=== PATIENT | male | born 1940 | race Caucasian/White ===

== ENCOUNTER 2019-08-03 11:16 | Emergency (ER) | payer OTHER ==
[~2019-08-03] VITALS: Ht 180.3 cm; Wt 93.9 kg
[~2019-08-03 11:16] MED LIST: AMLO10 PO; ATEN50 PO; ATORVASTATIN CA80 MG PO; Aspir 8181 MG PO; CARB25 PO; CLOP75 PO; FINA5 PO; GABA100 PO; GLIP5 PO; Glucophage1000 MG PO; INSULANPEN SC; Isosorbide Mono60 MG PO; LIDO700A20 TOP; Lasix20 MG PO; MELA3 PO; METO100ER PO; METO50ER PO; PANT40 PO; POTA10T PO; RANO500T PO; ROPI2 PO; SINEMET 25-1001 EACH PO; TAMS.4ER PO; VITAMIN B-121000 MC2 PO; VITAMIN D31000 UNIT PO; Vitamin B Comple1 EA PO; XARELTO20 MG PO
[2019-08-03 12:09] LABS: BASOPHILS ABSOLUTE AUTO 0.04 K/mm3 (0.00-0.23); BASOPHILS PERCENT AUTO 1 % (0-2); EOSINOPHILS ABSOLUTE AUTO 0.11 K/mm3 (0.00-0.68); EOSINOPHILS PERCENT AUTO 2 % (0-6); Hematocrit 39.6 % (37.0-53.0); Hemoglobin 11.8 g/dL (13.5-17.5); IMMATURE GRAN ABSOLUTE AUTO 0.02 K/mm3 (0.00-0.10); IMMATURE GRAN PERCENT AUTO 0 % (0-1); LYMPHOCYTES ABSOLUTE AUTO 0.98 K/mm3 (0.84-5.20); LYMPHOCYTES PERCENT AUTO 16 % (21-46); MONOCYTES ABSOLUTE AUTO 0.52 K/mm3 (0.16-1.47); MONOCYTES PERCENT AUTO 9 % (4-13); Mean Corpuscular HGB 24.7 pg (26.0-34.0); Mean Corpuscular HGB Conc 29.8 g/dL (31.5-36.5); Mean Corpuscular Volume 83 fL (80-100); NEUTROPHILS ABSOLUTE AUTO 4.32 K/mm3 (1.96-9.15); NEUTROPHILS PERCENT AUTO 72 % (41-73); Platelet Count 129 K/mm3 (150-400); RDW Coefficient Variation 17.2 % (11.7-14.2); RDW Standard Deviation 51.8 fL (35.1-46.3); Red Blood Cell Count 4.77 M/mm3 (4.30-5.90); White Blood Cell Count 5.99 K/mm3 (4.00-11.30)
[2019-08-03] MEDS ORDERED: AMLO5 PO (12:11)
[2019-08-03] MEDS ORDERED: METF500 PO (12:14)
[2019-08-03 12:16] LABS: Alanine Aminotransfer (ALT/SGP 17 U/L (12-78); Albumin, Blood 3.4 g/dL (3.4-5.0); Albumin/Globulin Ratio 1.1 (0.8-1.8); Alk Phos 60 U/L (50-136); Anion Gap 4 mmol/L (6-16); Aspartate Aminotrans (AST/SGOT 18 U/L (12-37); Bilirubin, Total 0.6 mg/dL (0.1-1.0); Blood Urea Nitrogen 19 mg/dL (8-24); Bun/Creatinine Ratio 16.4 (12.0-20.0); CO2, Blood 29 mmol/L (21-32); Calcium, Blood 8.8 mg/dL (8.5-10.1); Chloride, Blood 108 mmol/L (98-108); Creatinine, Blood 1.16 mg/dL (0.60-1.20); Glomerular Filtration Rate >60 (60-); Glucose, Blood 174 mg/dL (70-99); Potassium, Blood 4.2 mmol/L (3.5-5.5); Sodium, Blood 141 mmol/L (136-145); Total Protein, Blood 6.4 g/dL (6.4-8.2); Troponin I 0.018 ng/mL (0.000-0.040)
[2019-08-03 14:11] LABS: Source, Urine Voided
[2019-08-03 14:18] LABS: Bilirubin, Urine Neg (Neg); Blood, Urine Neg (Neg); Glucose Qualitative, Urine Neg (Neg); Ketones, Urine Neg (Neg); Leukocyte Esterase, Urine Neg (Neg); Nitrite, Urine Neg (Neg); Protein, Urine 1+ (Neg); Urobilinogen, Urine 2+ (Normal)
[2019-08-03 14:47] LABS: Appearance, Urine Clear (Clear); Color, Urine Yellow (P-Yellow)
[2019-08-03] MEDS ORDERED: Nitrostat0.4 MG SL (15:10)
== END 2019-08-03 15:55 | disposition home or self-care (01) ==
LOC: ER 11:16
PROVIDERS: Emergency Medicine
DX: T82.867A Thrombosis due to cardiac prosthetic devices, implants and grafts, initial encounter (principal); J86.9 Pyothorax without fistula; I25.10 Atherosclerotic heart disease of native coronary artery without angina pectoris; E11.9 Type 2 diabetes mellitus without complications; I11.0 Hypertensive heart disease with heart failure; I50.9 Heart failure, unspecified; N40.0 Benign prostatic hyperplasia without lower urinary tract symptoms; F43.10 Post-traumatic stress disorder, unspecified; G47.33 Obstructive sleep apnea (adult) (pediatric); Z88.8 Allergy status to other drugs, medicaments and biological substances; Z79.899 Other long term (current) drug therapy; Z79.82 Long term (current) use of aspirin; Z79.4 Long term (current) use of insulin; Z99.89 Dependence on other enabling machines and devices; Z87.891 Personal history of nicotine dependence; Z95.2 Presence of prosthetic heart valve; Z79.02 Long term (current) use of antithrombotics/antiplatelets
CPT/HCPCS: 71260; 80053; 83880; 84484; 85025; 93005; 93010; 96361; 96374-59; 99285-25; J2405; J7030; Q9967

== ENCOUNTER 2019-08-10 19:55 | Emergency (ER) | payer OTHER ==
[~2019-08-10] VITALS: Ht 180.3 cm; Wt 93.9 kg
[~2019-08-10 19:55] MED LIST changes: +AMLO5 PO; +METF500 PO; +Nitrostat0.4 MG SL
[2019-08-10 20:32] LABS: BASOPHILS ABSOLUTE AUTO 0.03 K/mm3 (0.00-0.23); BASOPHILS PERCENT AUTO 0 % (0-2); EOSINOPHILS ABSOLUTE AUTO 0.09 K/mm3 (0.00-0.68); EOSINOPHILS PERCENT AUTO 1 % (0-6); Hematocrit 40.5 % (37.0-53.0); Hemoglobin 11.9 g/dL (13.5-17.5); IMMATURE GRAN ABSOLUTE AUTO 0.05 K/mm3 (0.00-0.10); IMMATURE GRAN PERCENT AUTO 1 % (0-1); LYMPHOCYTES PERCENT AUTO 13 % (21-46); MONOCYTES ABSOLUTE AUTO 0.69 K/mm3 (0.16-1.47); MONOCYTES PERCENT AUTO 8 % (4-13); Mean Corpuscular HGB 24.8 pg (26.0-34.0); Mean Corpuscular HGB Conc 29.4 g/dL (31.5-36.5); Mean Corpuscular Volume 84 fL (80-100); Mean Platelet Volume 11.5 fL (9.1-12.4); NEUTROPHILS ABSOLUTE AUTO 6.27 K/mm3 (1.96-9.15); NEUTROPHILS PERCENT AUTO 76 % (41-73); Platelet Count 155 K/mm3 (150-400); RDW Coefficient Variation 16.8 % (11.7-14.2); RDW Standard Deviation 51.9 fL (35.1-46.3); White Blood Cell Count 8.23 K/mm3 (4.00-11.30)
[2019-08-10 21:04] LABS: Troponin I 0.021 ng/mL (0.000-0.040)
[2019-08-10] MEDS ORDERED: LOPE2C PO (21:11)
[2019-08-10 21:14] LABS: Alanine Aminotransfer (ALT/SGP 17 U/L (12-78); Albumin, Blood 3.8 g/dL (3.4-5.0); Albumin/Globulin Ratio 1.2 (0.8-1.8); Alk Phos 63 U/L (50-136); Anion Gap 7 mmol/L (6-16); Aspartate Aminotrans (AST/SGOT 18 U/L (12-37); Bilirubin, Total 0.4 mg/dL (0.1-1.0); Blood Urea Nitrogen 20 mg/dL (8-24); Bun/Creatinine Ratio 17.7 (12.0-20.0); CO2, Blood 27 mmol/L (21-32); Calcium, Blood 8.5 mg/dL (8.5-10.1); Chloride, Blood 106 mmol/L (98-108); Creatinine, Blood 1.13 mg/dL (0.60-1.20); Globulin, Blood 3.3 g/dL (2.2-4.0); Glomerular Filtration Rate >60 (60-); Glucose, Blood 120 mg/dL (70-99); Potassium, Blood 3.7 mmol/L (3.5-5.5); Sodium, Blood 140 mmol/L (136-145); Total Protein, Blood 7.1 g/dL (6.4-8.2)
[2019-08-11 07:58] LABS: Adenovirus F 40/41 Not Detected (NOT DETECT); Astrovirus Not Detected (NOT DETECT); Campylobacter Sp Not Detected (NOT DETECT); Cryptosporidium Not Detected (NOT DETECT); Cyclospora Cayetanensis Not Detected (NOT DETECT); E. Coli O157 Not Detected (NOT DETECT); Entamoeba Histolytica Not Detected (NOT DETECT); Enteroaggregative E. coli-EAEC Not Detected (NOT DETECT); Enteropathogenic E. coli-EPEC Not Detected (NOT DETECT); Enterotoxigenic E. coli-ETEC Not Detected (NOT DETECT); Giardia Lamblia Not Detected (NOT DETECT); Norovirus GI/GII Not Detected (NOT DETECT); Plesiomonas Shigelloides Not Detected (NOT DETECT); Rotavirus A Not Detected (NOT DETECT); Salmonella Sp Not Detected (NOT DETECT); Sapovirus Not Detected (NOT DETECT); Shiga Toxin-prod E. coli-STEC Not Detected (NOT DETECT); Shigella/Enteroin E. coli-EIEC Not Detected (NOT DETECT); Vibrio Cholerae Not Detected (NOT DETECT); Vibrio Sp Not Detected (NOT DETECT); Yersinia Enterocolitica Not Detected (NOT DETECT)
== END 2019-08-11 09:00 | disposition short-term general hospital (02) ==
LOC: ER 19:55
PROVIDERS: Physician Assistant
DX: T81.49XA Infection following a procedure, other surgical site, initial encounter (principal); L03.313 Cellulitis of chest wall; I26.99 Other pulmonary embolism without acute cor pulmonale; B96.89 Other specified bacterial agents as the cause of diseases classified elsewhere; I11.0 Hypertensive heart disease with heart failure; I50.9 Heart failure, unspecified; E11.9 Type 2 diabetes mellitus without complications; I25.810 Atherosclerosis of coronary artery bypass graft(s) without angina pectoris; E78.00 Pure hypercholesterolemia, unspecified; G47.33 Obstructive sleep apnea (adult) (pediatric); F43.10 Post-traumatic stress disorder, unspecified; G20 Parkinson's disease; I25.2 Old myocardial infarction; Z88.8 Allergy status to other drugs, medicaments and biological substances; Z79.84 Long term (current) use of oral hypoglycemic drugs; Z79.899 Other long term (current) drug therapy; Z87.891 Personal history of nicotine dependence; Z98.890 Other specified postprocedural states
CPT/HCPCS: 0097U; 36415; 71045; 71260; 74177; 80053; 83880; 84145; 84484; 85025; 85651; 86140; 87324; 93005; 93010; 99285-25; Q9967

== ENCOUNTER 2019-09-19 09:04 | Emergency (ER) | payer OTHER ==
[~2019-09-19] VITALS: Ht 182.9 cm; Wt 104.3 kg
[~2019-09-19 09:04] MED LIST changes: +LOPE2C PO
[2019-09-19 10:40] LABS: BASOPHILS ABSOLUTE AUTO 0.06 K/mm3 (0.00-0.23); BASOPHILS PERCENT AUTO 1 % (0-2); EOSINOPHILS ABSOLUTE AUTO 0.21 K/mm3 (0.00-0.68); EOSINOPHILS PERCENT AUTO 3 % (0-6); Hematocrit 40.2 % (37.0-53.0); Hemoglobin 11.9 g/dL (13.5-17.5); IMMATURE GRAN ABSOLUTE AUTO 0.08 K/mm3 (0.00-0.10); IMMATURE GRAN PERCENT AUTO 1 % (0-1); LYMPHOCYTES ABSOLUTE AUTO 1.15 K/mm3 (0.84-5.20); LYMPHOCYTES PERCENT AUTO 18 % (21-46); MONOCYTES ABSOLUTE AUTO 0.69 K/mm3 (0.16-1.47); MONOCYTES PERCENT AUTO 11 % (4-13); Mean Corpuscular HGB 24.5 pg (26.0-34.0); Mean Corpuscular HGB Conc 29.6 g/dL (31.5-36.5); Mean Corpuscular Volume 83 fL (80-100); Mean Platelet Volume 11.9 fL (9.1-12.4); NEUTROPHILS ABSOLUTE AUTO 4.29 K/mm3 (1.96-9.15); NEUTROPHILS PERCENT AUTO 66 % (41-73); Platelet Count 105 K/mm3 (150-400); RDW Coefficient Variation 15.1 % (11.7-14.2); RDW Standard Deviation 45.3 fL (35.1-46.3); Red Blood Cell Count 4.86 M/mm3 (4.30-5.90); White Blood Cell Count 6.48 K/mm3 (4.00-11.30)
[2019-09-19 11:00] LABS: Alanine Aminotransfer (ALT/SGP 26 U/L (12-78); Albumin, Blood 3.5 g/dL (3.4-5.0); Alk Phos 85 U/L (50-136); Anion Gap 3 mmol/L (6-16); Aspartate Aminotrans (AST/SGOT 15 U/L (12-37); Bilirubin, Total 0.4 mg/dL (0.1-1.0); Blood Urea Nitrogen 21 mg/dL (8-24); Bun/Creatinine Ratio 19.3 (12.0-20.0); CO2, Blood 28 mmol/L (21-32); Calcium, Blood 8.2 mg/dL (8.5-10.1); Chloride, Blood 110 mmol/L (98-108); Creatinine, Blood 1.09 mg/dL (0.60-1.20); Globulin, Blood 3.4 g/dL (2.2-4.0); Glomerular Filtration Rate >60 (60-); Glucose, Blood 165 mg/dL (70-99); Potassium, Blood 4.1 mmol/L (3.5-5.5); Sodium, Blood 141 mmol/L (136-145); Total Protein, Blood 6.9 g/dL (6.4-8.2); Troponin I <0.015 ng/mL (0.000-0.040)
[2019-09-19] MEDS ORDERED: DOXY100 PO (11:20)
[2019-09-19] MEDS ORDERED: ELIQUIS2.5 MG PO (11:20)
[2019-09-19] MEDS ORDERED: PACERONE100 M1 PO (11:21)
[2019-09-19] MEDS ORDERED: MOXI400 (11:21)
[2019-09-19] MEDS ORDERED: PANT20 PO (11:21)
[2019-09-19] MEDS ORDERED: CARV3.125 PO (11:21)
[2019-09-19] MEDS ORDERED: LOSA25 PO (11:22)
[2019-09-19] MEDS ORDERED: ASPI81CH PO (11:22)
[2019-09-19] MEDS ORDERED: IODPOTL TOP (11:22)
== END 2019-09-19 14:14 | disposition home or self-care (01) ==
LOC: ER 09:04
PROVIDERS: Emergency Medicine
DX: R07.9 Chest pain, unspecified (principal); R21 Rash and other nonspecific skin eruption; I10 Essential (primary) hypertension; E11.9 Type 2 diabetes mellitus without complications; I25.2 Old myocardial infarction; Z87.891 Personal history of nicotine dependence; Z79.899 Other long term (current) drug therapy; Z79.4 Long term (current) use of insulin; Z79.82 Long term (current) use of aspirin
CPT/HCPCS: 36415; 71046; 80053; 83690; 84484; 85025; 93005; 93010; 99284-25

== ENCOUNTER 2020-05-22 16:53 | Inpatient (IN) | payer OTHER, MEDICARE ==
[~2020-05-22] VITALS: Ht 180.3 cm; Wt 104.0 kg
[~2020-05-22 16:53] MED LIST changes: +ASPI81CH PO; -ATORVASTATIN CA80 MG PO; +DOXY100 PO; +IODPOTL TOP; +MOXI400; -TAMS.4ER PO; -VITAMIN D31000 UNIT PO; -Vitamin B Comple1 EA PO
[2020-05-22 17:30] LABS: BASOPHILS ABSOLUTE AUTO 0.05 K/mm3 (0.00-0.23); BASOPHILS PERCENT AUTO 1 % (0-2); EOSINOPHILS ABSOLUTE AUTO 0.08 K/mm3 (0.00-0.68); EOSINOPHILS PERCENT AUTO 1 % (0-6); Hematocrit 43.8 % (37.0-53.0); IMMATURE GRAN ABSOLUTE AUTO 0.08 K/mm3 (0.00-0.10); IMMATURE GRAN PERCENT AUTO 1 % (0-1); LYMPHOCYTES PERCENT AUTO 18 % (21-46); MONOCYTES ABSOLUTE AUTO 0.59 K/mm3 (0.16-1.47); MONOCYTES PERCENT AUTO 8 % (4-13); Mean Corpuscular HGB 26.8 pg (26.0-34.0); Mean Corpuscular Volume 84 fL (80-100); Mean Platelet Volume 11.3 fL (9.1-12.4); NEUTROPHILS ABSOLUTE AUTO 5.03 K/mm3 (1.96-9.15); NEUTROPHILS PERCENT AUTO 71 % (41-73); Platelet Count 101 K/mm3 (150-400); RDW Coefficient Variation 15.6 % (11.7-14.2); RDW Standard Deviation 47.6 fL (35.1-46.3); Red Blood Cell Count 5.22 M/mm3 (4.30-5.90); White Blood Cell Count 7.13 K/mm3 (4.00-11.30)
[2020-05-22 17:56] LABS: Albumin, Blood 3.5 g/dL (3.4-5.0); Albumin/Globulin Ratio 1.1 (0.8-1.8); Bilirubin, Total 0.6 mg/dL (0.1-1.0); Bun/Creatinine Ratio 22.3 (12.0-20.0); Calcium, Blood 8.4 mg/dL (8.5-10.1); Creatinine, Blood 1.3 mg/dL (0.60-1.20); Globulin, Blood 3.2 g/dL (2.2-4.0); Total Protein, Blood 6.7 g/dL (6.4-8.2); Troponin I 0.02 ng/mL (0.000-0.040)
[2020-05-22] MEDS ORDERED: VITAMIN D31000 UNIT PO (19:22)
[2020-05-22] MEDS ORDERED: ATORVASTATIN CA80 MG PO (19:22)
[2020-05-22] MEDS ORDERED: TAMS.4ER PO (19:23)
[2020-05-22] MEDS ORDERED: Vitamin B Comple1 EA PO (19:24)
[2020-05-22] MEDS ORDERED: ELIQUIS5 MG PO (19:25)
[2020-05-22] MEDS ORDERED: Amiodarone HCl200 MG PO (19:25)
[2020-05-22] MEDS ORDERED: PANT40 PO (19:26)
[2020-05-22] MEDS ORDERED: CARV6.25 PO (19:26)
[2020-05-22] MEDS ORDERED: ASCO500 PO (19:27)
[2020-05-22] MEDS ORDERED: LOSA25 PO (19:27)
[2020-05-22] MEDS ORDERED: FURO20 PO (19:28)
[2020-05-22] MEDS ORDERED: FERSU300 PO (19:28)
[2020-05-22] MEDS ORDERED: CALCIUM CARBON650 MG PO (19:29)
[2020-05-22] MEDS ORDERED: POTA10T PO (19:29)
[2020-05-22] MEDS ORDERED: GLUCOPHAGE1000 M1 PO (19:30)
[2020-05-22] MEDS ORDERED: AMLO5 PO (19:30)
[2020-05-22] MEDS ORDERED: PREDNISOLONE ACE5 ML LEFTEYE (19:31)
[2020-05-22] MEDS ORDERED: Sinemet 25-1001 EACH PO (21:13)
[2020-05-22] MEDS ORDERED: carbidopa PO (23:30)
[2020-05-23 01:42] LABS: BASOPHILS ABSOLUTE AUTO 0.04 K/mm3 (0.00-0.23); BASOPHILS PERCENT AUTO 1 % (0-2); EOSINOPHILS ABSOLUTE AUTO 0.08 K/mm3 (0.00-0.68); EOSINOPHILS PERCENT AUTO 1 % (0-6); Hematocrit 45.2 % (37.0-53.0); Hemoglobin 14.5 g/dL (13.5-17.5); IMMATURE GRAN ABSOLUTE AUTO 0.06 K/mm3 (0.00-0.10); IMMATURE GRAN PERCENT AUTO 1 % (0-1); LYMPHOCYTES ABSOLUTE AUTO 1.55 K/mm3 (0.84-5.20); LYMPHOCYTES PERCENT AUTO 24 % (21-46); MONOCYTES PERCENT AUTO 10 % (4-13); Mean Corpuscular HGB Conc 32.1 g/dL (31.5-36.5); Mean Corpuscular Volume 84 fL (80-100); Mean Platelet Volume 11.3 fL (9.1-12.4); NEUTROPHILS ABSOLUTE AUTO 4.01 K/mm3 (1.96-9.15); NEUTROPHILS PERCENT AUTO 63 % (41-73); Platelet Count 105 K/mm3 (150-400); RDW Coefficient Variation 15.8 % (11.7-14.2); RDW Standard Deviation 48.2 fL (35.1-46.3); Red Blood Cell Count 5.38 M/mm3 (4.30-5.90); White Blood Cell Count 6.34 K/mm3 (4.00-11.30)
[2020-05-23 02:00] LABS: Troponin I 0.023 ng/mL (0.000-0.040)
[2020-05-23 02:01] LABS: Alanine Aminotransfer (ALT/SGP 20 U/L (12-78); Albumin, Blood 3.6 g/dL (3.4-5.0); Albumin/Globulin Ratio 1.1 (0.8-1.8); Alk Phos 62 U/L (50-136); Anion Gap 4 mmol/L (6-16); Aspartate Aminotrans (AST/SGOT 12 U/L (12-37); Bilirubin, Total 0.5 mg/dL (0.1-1.0); Blood Urea Nitrogen 30 mg/dL (8-24); Bun/Creatinine Ratio 25.6 (12.0-20.0); CO2, Blood 27 mmol/L (21-32); Calcium, Blood 8.8 mg/dL (8.5-10.1); Chloride, Blood 110 mmol/L (98-108); Creatinine, Blood 1.17 mg/dL (0.60-1.20); Globulin, Blood 3.2 g/dL (2.2-4.0); Glomerular Filtration Rate >60 (60-); Glucose, Blood 164 mg/dL (70-99); Potassium, Blood 4.1 mmol/L (3.5-5.5); Sodium, Blood 141 mmol/L (136-145); Total Protein, Blood 6.8 g/dL (6.4-8.2)
--- NOTE | 2020-05-23 05:08 | NUR ---
RN TELE SUMMARY PT ARRIVED FROM THE ED REPORTING MINIMAL 2/10 PAIN IN HIS CHEST. PT WAS SEEN BY PROVIDER AT BEDSIDE AND REPORTED REDUCED SYMPTOMS. PT HAS TREMOR THAT IS SEVERE AT TIMES AND NON-EXISTENT AT OTHER. PT WAS HYPERTENSIVE WHEN HE ARRIVED HOWEVER BP IS WNL AND STABLE FOR MOST OF THE SHIFT. PT DID BECOME VERY EMOTIONAL DURING HIS ADMISSION WHEN TALKING ABOUT HIS TIME IN THE AND THIS RN AND AMINA Santos ACTIVELY LISTENED HE EXPRESSED HIS FEELING ABOUT THIS FOR 10+ MIN. PT REPORTS THAT HE LOST HIS HEARING AIDES AND DENTURES IN A PREVIOUS VISIT AND HAS BEEN UNABLE TO REPLACE THEM WHICH AFFECTS HIS ABILITY TO EAT. PT IS AXO X4 AND WAS ABLE TO AMBULATE W OUT ANY DIZZYNESS. TELE- PACED IN THE 60'S. WCTM.
[2020-05-23 09:37] LABS: Troponin I 0.018 ng/mL (0.000-0.040)
--- NOTE | 2020-05-23 09:50 | NUR ---
ASSUMED CARE FROM NOC RN, MORNING UPDATE PT WAS AWAKE AND IN HIS CHAIR DURING MORNING REPORT. PT PARTICIPATED IN REPORT AND REPORTED ONLY SLIGHT CHEST PAIN AND DISCOMFORT. PT HAS EXTENSIVE CARDIAC HISTORY; A STRESS TEST IS TO BE COMPLETED TODAY. PT REPORTS BACK PAIN FROM SERVICE IN [place] AND USES THE HEATING PAD FOR RELIEF. VS STABLE, PT ON RA, ALL MORNING MEDS GIVEN
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
--- NOTE | 2020-05-23 16:38 | NUR ---
Student nurse was given permission by primary RN to assist with care.
--- NOTE | 2020-05-23 17:29 | NUR ---
SHIFT SUMMARY PT COMPLETED 1 DAY STRESS TEST WITH NUC. MED TODAY. VS STABLE, PT ON RA AND SBA/INDEPENDENT IN THE ROOM. PT HAS SAT IN THE CHAIR ON AND OFF TODAY AND SPENT SOME TIME RESTING IN BED. PT REPORTED SOME LOWER BACK PAIN THAT IS CHRONIC DUE TO INJURIES AND REQUESTED A LIDOCAINE PATCH WHICH IS IN PLACE AND TO BE REPLACED DAILY. PT WAS ABLE TO VISIT WITH THE UT VOLUNTEER REP TODAY, WELL THE CRYSTAL AND HIS SPOUSE. PT DOES SUFFER FROM PTSD RELATED TO SERVICE AND HE IS VERY OPEN ABOUT HIS EXPERIENCES REGARDING THIS. PT IS IN HIS ROOM EATING DINNER AT THIS TIME
--- NOTE | 2020-05-24 06:17 | NUR ---
SHIFT SUMMARY PT A&O X4; VSS; DENIES CHEST PAIN; PACED ON TELE; O2 SATS >93 ON RA; DENIES SOB; PT STATED HE WAS DISAPPOINTED HE NEEDED TO STAY IN HOSPITAL AND EXPRESSED CONCERN OF MISSING A PSYHOLOGIST APPOINTMENT AT [place]; PT NPO @ MIDNIGHT FOR PREPARATION FOR ANGIO; INDEPENDENT IN ROOM; SEEMED UNSETTLED AND DID NOT SLEEP MUCH; BROUGHT BOOKS TO PT FOR DISTRACTION; THIS AM C/O CHRONIC BACK PAIN, ADMINISTERED FENTANYL PER EMAR AND BROUGHT IN HEAT PAD; CALL LIGHT IN REACH; BED IN LOWEST POSITION; WILL CONTINUE TO MONITOR CLOSELY UNTIL HAND OFF TO DAY SHIFT RN.
--- NOTE | 2020-05-24 09:53 | NUR ---
ASSUMED CARE FROM NOC RN, MORNING UPDATE PT WAS SITTING AT THE SIDE OF THE BED READING DURING REPORT. IT WAS REPORTED THAT PT WAS FEELING ANXIOUS DURING CHUCK TENDER, AND STRUGGLED TO SLEEP KNOWNING HE HAD A PENDING ANGIO TODAY. PT WAS VISITED BY DR. JUDD THIS MORNING WHO IS HOPING TO GET THE PT IN FOR AN ANGIO IF HIS SCHEDULE ALLOWS TODAY; PT HAS BEEN KEPT NPO WITH EXCEPTION OF WATER FOR MEDS. PT HAS BEEN INDEPENDENT IN THE ROOM. VS STABLE, PT DENIES SOB, CHEST PAIN OR DISCOMFORT.
[2020-05-24 14:59] LABS: Influenza A, PCR NEGATIVE (NEGATIVE); Influenza B, PCR NEGATIVE (NEGATIVE); Resp Syncytial Virus, PCR NEGATIVE (NEGATIVE); SARS-Cov-2 (COVID-19) PCR, MMC NEGATIVE (NEGATIVE)
--- NOTE | 2020-05-24 17:56 | NUR ---
SHIFT SUMMARY PT HAS BEEN WAITING FOR AN ANGIO THROUGHOUT THE DAY. VS STABLE, PT DENIES ANY CHEST PAIN AND DISCOMFORT. PT LEFT FOR ANGIO AT APPROXIMATELY 1715 AND IS CURRENTLY IN THE [facility]
--- NOTE | 2020-05-25 06:41 | NUR ---
SHIFT SUMMARY PT A&O X4; STATUS POST ANGIO; VSS; DENIES CHEST PAIN; TR BAND RECOVERED; TEGADERM AND ARM BOARD IN PLACE; PT STRUGGLED W/ LAYING FLAT AND FOLLOWING EDUCATIONAL INSTRUCTION DUE TO CHRONIC BACK PAIN; BED ALARM WAS ON AND ALERTED STAFF TO PT TRYING TO GET UP; BLEEDING NOTED AT FEMORAL SITE; SAND BAG PLACED FOR PRESSURE; SMALL AMOUNT OF BLOOD NOTED THAT HAD SATURATED THE GAUZE; PT RE-EDUCATED; FENTANYL ADMINISTERED; HEAT PAD PLACED ON L SIDE OF BACK; ASSISTED PT IN CALLING SPOUSE TO UPDATE HER; MEAL WAS BROUGHT TO PT WHEN ABLE TO SIT UP W/ ASSISTANCE IN EATING; PT SLEPT A FEW HOURS AFTER INTERVENTIONS; CALL LIGHT IN REACH; BED IN LOWEST POSITION; BED ALARM ON; WILL CONTINUE TO MONITOR CLOSELY UNTIL HAND OFF TO DAY SHIFT RN.
[2020-05-25 10:08] LABS: BASOPHILS ABSOLUTE AUTO 0.03 K/mm3 (0.00-0.23); BASOPHILS PERCENT AUTO 1 % (0-2); EOSINOPHILS ABSOLUTE AUTO 0.02 K/mm3 (0.00-0.68); EOSINOPHILS PERCENT AUTO 0 % (0-6); Hematocrit 44.8 % (37.0-53.0); Hemoglobin 14.3 g/dL (13.5-17.5); IMMATURE GRAN ABSOLUTE AUTO 0.04 K/mm3 (0.00-0.10); IMMATURE GRAN PERCENT AUTO 1 % (0-1); LYMPHOCYTES ABSOLUTE AUTO 0.22 K/mm3 (0.84-5.20); LYMPHOCYTES PERCENT AUTO 4 % (21-46); MONOCYTES ABSOLUTE AUTO 0.32 K/mm3 (0.16-1.47); MONOCYTES PERCENT AUTO 5 % (4-13); Mean Corpuscular HGB 27.1 pg (26.0-34.0); Mean Corpuscular HGB Conc 31.9 g/dL (31.5-36.5); Mean Corpuscular Volume 85 fL (80-100); Mean Platelet Volume 10.5 fL (9.1-12.4); NEUTROPHILS ABSOLUTE AUTO 5.52 K/mm3 (1.96-9.15); NEUTROPHILS PERCENT AUTO 90 % (41-73); Platelet Count 97 K/mm3 (150-400); RDW Coefficient Variation 15.9 % (11.7-14.2); RDW Standard Deviation 49.1 fL (35.1-46.3); Red Blood Cell Count 5.28 M/mm3 (4.30-5.90); White Blood Cell Count 6.15 K/mm3 (4.00-11.30)
[2020-05-25 10:28] LABS: Bun/Creatinine Ratio 23.7 (12.0-20.0); Calcium, Blood 8.6 mg/dL (8.5-10.1); Creatinine, Blood 1.35 mg/dL (0.60-1.20); Potassium, Blood 4.2 mmol/L (3.5-5.5)
--- NOTE | 2020-05-25 17:26 | NUR ---
SHIFT SUMMARY: PT A&O T/OUT SHIFT WITH LONG NAPS IN BETWEEN, STATES HE HAS NOT GOTTEN GOOD REST LATELY. RESP EVEN AND UNLABORED, O2 SATS MAINTAINED >92% ON RA, DENIES CHEST PAIN/PRESSURE, MONITOR SHOWS PACED IN 60'S. PT IS STATUS POST ANGIO AND STENT PLACEMENT LAST NOC WITH R RADIAL SITE WNL, R FEMORAL SITE SHOWS SIGNS OF SMALL AMOUNT OF BLEEDING THAT WAS CONTROLLED ON NOC SHIFT. PT REPORTS MILD TENDERNESS WITH PALPATION. PT ABLE TO TRANSFER SELF TO AND FROM BEDSIDE CHAIR W/SBA. ECHO COMPLETED AT BEDSIDE TODAY, PT PENDING POSSIBLE DC DEPENDING ON ECHO FINDINGS. WILL CONTINUE TO MONITOR AND TREAT ACCORDINGLY UNTIL CHANGE OF SHIFT OR DC.
[2020-05-25] MEDS ORDERED: CLOP75 PO (18:40)
[2020-05-25] MEDS ORDERED: NITR.4SL SL (18:42)
== END 2020-05-25 19:10 | disposition home or self-care (01) | DRG 247 ==
LOC: ER 16:53 → PCU 16:55 → ER 19:20 → PCU 20:53
PROVIDERS: Emergency Medicine; Internal Medicine; Internal Medicine Cardiovascular Disease; ADMIT Internal Medicine
PROC: 4A023N7 Measurement of Cardiac Sampling and Pressure, Left Heart, Percutaneous Approach (ICD-10-PCS; principal; 2020-05-24)
PROC: 027034Z Dilation of Coronary Artery, One Artery with Drug-eluting Intraluminal Device, Percutaneous Approach (ICD-10-PCS; 2020-05-24)
PROC: B211YZZ Fluoroscopy of Multiple Coronary Arteries using Other Contrast (ICD-10-PCS; 2020-05-24)
DX: T82.855A Stenosis of coronary artery stent, initial encounter (principal); I25.110 Atherosclerotic heart disease of native coronary artery with unstable angina pectoris; N17.9 Acute kidney failure, unspecified; I10 Essential (primary) hypertension; E11.9 Type 2 diabetes mellitus without complications; Z79.4 Long term (current) use of insulin; I11.0 Hypertensive heart disease with heart failure; I50.9 Heart failure, unspecified; F43.10 Post-traumatic stress disorder, unspecified; G20 Parkinson's disease; Z95.2 Presence of prosthetic heart valve; Z95.5 Presence of coronary angioplasty implant and graft; E66.9 Obesity, unspecified; Z68.32 Body mass index [BMI] 32.0-32.9, adult; E78.5 Hyperlipidemia, unspecified
CPT/HCPCS: 0241U; 36415; 71045; 76937; 78452; 80048; 80053; 82550; 82947; 83880; 84484; 85025; 85347; 92937; 93005; 93010; 93017; 93306; 93455; 96372; 96375; 96376; 99152; 99153; 99285-25; A9270; A9500; C1725; C1760; C1769; C1874; C1887; C1894; G0008; G0378; J0706; J1644; J1650; J2250; J2405; J2785; J3010; J3246; J7030; J7050; Q2038; Q9967

== ENCOUNTER 2020-09-13 10:29 | Observation (INO) | payer OTHER ==
[~2020-09-13] VITALS: Ht 167.6 cm; Wt 90.7 kg
[~2020-09-13 10:29] MED LIST changes: +ASCO500 PO; +ATORVASTATIN CA80 MG PO; +Amiodarone HCl200 MG PO; +CALCIUM CARBON650 MG PO; +CARV6.25 PO; +ELIQUIS5 MG PO; +FERSU300 PO; +FURO20 PO; +GLUCOPHAGE1000 M1 PO; +LOSA25 PO; +NITR.4SL SL; +PREDNISOLONE ACE5 ML LEFTEYE; +Sinemet 25-1001 EACH PO; +TAMS.4ER PO; +VITAMIN D31000 UNIT PO; +Vitamin B Comple1 EA PO; +carbidopa PO
[2020-09-13 10:51] LABS: BASOPHILS ABSOLUTE AUTO 0.03 K/mm3 (0.00-0.23); BASOPHILS PERCENT AUTO 0 % (0-2); EOSINOPHILS ABSOLUTE AUTO 0.08 K/mm3 (0.00-0.68); EOSINOPHILS PERCENT AUTO 1 % (0-6); Hematocrit 45.9 % (37.0-53.0); Hemoglobin 14.5 g/dL (13.5-17.5); IMMATURE GRAN ABSOLUTE AUTO 0.05 K/mm3 (0.00-0.10); IMMATURE GRAN PERCENT AUTO 1 % (0-1); LYMPHOCYTES ABSOLUTE AUTO 0.98 K/mm3 (0.84-5.20); LYMPHOCYTES PERCENT AUTO 13 % (21-46); MONOCYTES ABSOLUTE AUTO 0.58 K/mm3 (0.16-1.47); MONOCYTES PERCENT AUTO 8 % (4-13); Mean Corpuscular HGB 27.8 pg (26.0-34.0); Mean Corpuscular HGB Conc 31.6 g/dL (31.5-36.5); Mean Corpuscular Volume 88 fL (80-100); NEUTROPHILS ABSOLUTE AUTO 5.64 K/mm3 (1.96-9.15); NEUTROPHILS PERCENT AUTO 77 % (41-73); Platelet Count 100 K/mm3 (150-400); RDW Coefficient Variation 13.4 % (11.7-14.2); RDW Standard Deviation 43.4 fL (35.1-46.3); Red Blood Cell Count 5.21 M/mm3 (4.30-5.90); White Blood Cell Count 7.36 K/mm3 (4.00-11.30)
[2020-09-13 11:08] LABS: Alanine Aminotransfer (ALT/SGP 17 U/L (12-78); Albumin, Blood 3.6 g/dL (3.4-5.0); Albumin/Globulin Ratio 1.1 (0.8-1.8); Alk Phos 62 U/L (50-136); Anion Gap 5 mmol/L (6-16); Aspartate Aminotrans (AST/SGOT 13 U/L (12-37); Bilirubin, Total 0.5 mg/dL (0.1-1.0); Blood Urea Nitrogen 25 mg/dL (8-24); Bun/Creatinine Ratio 20.8 (12.0-20.0); CO2, Blood 25 mmol/L (21-32); Calcium, Blood 8.5 mg/dL (8.5-10.1); Chloride, Blood 105 mmol/L (98-108); Globulin, Blood 3.3 g/dL (2.2-4.0); Glomerular Filtration Rate >60 (60-); Glucose, Blood 287 mg/dL (70-99); Sodium, Blood 135 mmol/L (136-145); Total Protein, Blood 6.9 g/dL (6.4-8.2); Troponin I 0.028 ng/mL (0.000-0.040)
[2020-09-13] MEDS ORDERED: ELIQUIS5 MG PO (11:40)
[2020-09-13] MEDS ORDERED: AMLO5 PO (11:40)
[2020-09-13] MEDS ORDERED: CLOP75 PO (11:41)
[2020-09-13] MEDS ORDERED: FINA5 PO (11:41)
[2020-09-13] MEDS ORDERED: FERSU300 PO (11:41)
[2020-09-13] MEDS ORDERED: CARV6.25 PO (11:41)
[2020-09-13] MEDS ORDERED: ASCO500 PO (11:41)
[2020-09-13] MEDS ORDERED: LIDO700A20 TOP (11:42)
[2020-09-13] MEDS ORDERED: FURO20 PO (11:42)
[2020-09-13] MEDS ORDERED: LOSA25 PO (11:42)
[2020-09-13] MEDS ORDERED: PANT40 PO (11:43)
[2020-09-13] MEDS ORDERED: TAMS.4ER PO (11:43)
[2020-09-13] MEDS ORDERED: POTA10T PO (11:43)
[2020-09-13] MEDS ORDERED: NITR.4SL SL (11:43)
[2020-09-13] MEDS ORDERED: GLUCOPHAGE1000 M2 PO (11:43)
[2020-09-13] MEDS ORDERED: CARBIDOPA-LEVO1 EA15 PO (11:44)
[2020-09-13] MEDS ORDERED: THERA-D2000 UNIT PO (11:44)
[2020-09-13] MEDS ORDERED: CARB25 PO (11:44)
[2020-09-13] MEDS ORDERED: BASAGLAR K100 UNIT/1 SC (11:45)
[2020-09-13] MEDS ORDERED: MELA3 PO (11:45)
[2020-09-13] MEDS ORDERED: ISOSORBIDE MONO60 MG PO (11:45)
[2020-09-13] MEDS ORDERED: Vitamin B-121000 MCG PO (11:45)
[2020-09-13] MEDS ORDERED: RANO500T PO (11:45)
--- NOTE | 2020-09-13 19:48 | NUR ---
A+O, walking in room with sba r/parkinson using walker and moving well at this time, bed alarm on, call light in reach, saline locked rm air, bsr shared with noc nurse and pt, states only slight cp which is chronic
--- NOTE | 2020-09-14 05:00 | NUR ---
CONDOMINIUM MANAGER SUMMARY NO ACUTE CHANGES THIS SHIFT. PT AAOX4 AND PLEASANT. STANDBY ASSIST PT CAN BE A BIT UNSTEADY DUE TO PARKINSONS. DENIES CP OR SOB TONIGHT. PT TO HAVE STRESS TEST LATER TODAY. VSS, WILL CONTINUE TO MONITOR.
[2020-09-14 05:04] LABS: BASOPHILS ABSOLUTE AUTO 0.04 K/mm3 (0.00-0.23); BASOPHILS PERCENT AUTO 1 % (0-2); EOSINOPHILS PERCENT AUTO 2 % (0-6); IMMATURE GRAN ABSOLUTE AUTO 0.03 K/mm3 (0.00-0.10); IMMATURE GRAN PERCENT AUTO 1 % (0-1); LYMPHOCYTES ABSOLUTE AUTO 1.18 K/mm3 (0.84-5.20); LYMPHOCYTES PERCENT AUTO 18 % (21-46); MONOCYTES ABSOLUTE AUTO 0.58 K/mm3 (0.16-1.47); MONOCYTES PERCENT AUTO 9 % (4-13); Mean Corpuscular HGB 27.9 pg (26.0-34.0); Mean Corpuscular HGB Conc 31.8 g/dL (31.5-36.5); Mean Corpuscular Volume 88 fL (80-100); Mean Platelet Volume 10.9 fL (9.1-12.4); NEUTROPHILS ABSOLUTE AUTO 4.55 K/mm3 (1.96-9.15); NEUTROPHILS PERCENT AUTO 70 % (41-73); Platelet Count 99 K/mm3 (150-400); RDW Coefficient Variation 13.5 % (11.7-14.2); RDW Standard Deviation 43.3 fL (35.1-46.3); Red Blood Cell Count 5.01 M/mm3 (4.30-5.90); White Blood Cell Count 6.48 K/mm3 (4.00-11.30)
[2020-09-14 05:24] LABS: Alanine Aminotransfer (ALT/SGP 7 U/L (12-78); Albumin, Blood 3.4 g/dL (3.4-5.0); Albumin/Globulin Ratio 1.2 (0.8-1.8); Alk Phos 56 U/L (50-136); Anion Gap 4 mmol/L (6-16); Aspartate Aminotrans (AST/SGOT 13 U/L (12-37); Bilirubin, Total 0.6 mg/dL (0.1-1.0); Blood Urea Nitrogen 28 mg/dL (8-24); Bun/Creatinine Ratio 23.5 (12.0-20.0); CO2, Blood 27 mmol/L (21-32); Calcium, Blood 8.4 mg/dL (8.5-10.1); Chloride, Blood 108 mmol/L (98-108); Creatinine, Blood 1.19 mg/dL (0.60-1.20); Globulin, Blood 2.9 g/dL (2.2-4.0); Glomerular Filtration Rate >60 (60-); Glucose, Blood 136 mg/dL (70-99); Potassium, Blood 4.1 mmol/L (3.5-5.5); Sodium, Blood 139 mmol/L (136-145); Total Protein, Blood 6.3 g/dL (6.4-8.2)
--- NOTE | 2020-09-14 16:31 | NUR ---
stress test started today, needs to not have caffine tonight to prepare for 2nd half of test, up with pt who moved him up to indpendant in , pt promised to be careful, call light in reach, denies pain, oximeter working, air, saline locked, will continue to monitor and treat until share bsr with noc nurse and pt, family in to visit, dressing cdi
--- NOTE | 2020-09-14 19:34 | NUR ---
AWAKENED AT SHIFT CHANGE ROUNDS, WAS APPARENTLY SLEEPING IN CHAIR AT BEDSIDE. AFFECT CHEERFUL AND JOINS CONVERSATION. CALL LIGHT IN REACH.
--- NOTE | 2020-09-14 19:56 | NUR ---
HISTOPATH TECH REPORTS CHEST PAIN WITH VS. VSS. PT REPORTE LONG HX OF CHEST PAIN, "THATS ONE REASON IM HERE". IS SCHEDULED FOR 2ND DAY OF STRESS TEST IN THE AM. WILL BE NPO AFTER 0000. TYLENOL 650 MG PO ADMIN, THEN FELT SOME NAUSEA. ZOFRAN IV ADMIN. [employer] REPORTS SINUS RHYTHM AT 61, NO NOTED ANOMALY. PT ALSO REPORTED HAS "PACER" WHICH WAS PLACED A WHILE BACK. CALL LIGHT IN REACH
--- NOTE | 2020-09-15 05:41 | NUR ---
MDS MANAGER SUMMARY HAD C/O MILD CHEST PAIN AT SHIFT COMMENCE, RECEIVED TYLENOL FOR PAIN AND ZOFRAN FOR POST MED NAUSEA. VOICED IMPROVEMENT OF BOTH. HAD APPARENTLY SLEPT WITH FEW INTERRUPTIONS SINCE THEN. NPO EXCEPT MEDS SINCE MIDNIGHT FOR 2ND DAY OF STRESS TEST SCHEDULED TODAY. AWAKE AT THIS TIME. VSS. CALL LIGHT IN REACH
[2020-09-15 05:58] LABS: Albumin, Blood 3.5 g/dL (3.4-5.0); Anion Gap 5 mmol/L (6-16); Blood Urea Nitrogen 31 mg/dL (8-24); Bun/Creatinine Ratio 22.5 (12.0-20.0); CHOL/HDL RATIO 5.2; CO2, Blood 27 mmol/L (21-32); Calcium, Blood 8.9 mg/dL (8.5-10.1); Chloride, Blood 106 mmol/L (98-108); Cholesterol 168 mg/dL (50-200); Creatinine, Blood 1.38 mg/dL (0.60-1.20); Glomerular Filtration Rate 53 (60-); Glucose, Blood 145 mg/dL (70-99); HDL Cholesterol 32 mg/dL (>39); LDL/HDL RATIO 3.3; Low Density Lipoprotein Chol 106 mg/dL (0-110); Phosphorus, Blood 4.7 mg/dL (2.5-4.9); Potassium, Blood 4.4 mmol/L (3.5-5.5); Sodium, Blood 138 mmol/L (136-145); Triglycerides 150 mg/dL (30-160); Very Low Density Lipoprot Chol 30 mg/dL (6-32)
--- NOTE | 2020-09-15 16:43 | NUR ---
PT IS A/OX4, PLEASANT AND COOPERATIVE, THE PT IS UP WITH MINIMAL ASSIST TO THE CHAIR AND BED, THE PT FINISHED THE 2 PORTION OF HIS STRESS TEST TODAY AND TOLERATED WELL, THE PT REPORTED ONLY MILD CHEST PRESSURE THIS AM 10, THIS AFTERNOON THE PTS BP WAS 84/51 WHILE SITTING, THE PT REPORTED FEELING MORE TIRED THAN USUAL AND UNABLE TO CONCENTRATE, THE PT WAS ASSISTED TO BED, DR. JIMENEZ WAS CALLED WITH THE FIRST RESULT AND ORDERS TO RECHECK WERE GIVEN, AFTER ABOUT 10 MIN OF THE PT LYING DOWN HIS BP INCREASED TO 96/56, PT NOW RESTING IN BED, APPEARS TO BE BREATHING EASILY ON RA, WILL CONTINUE TO MONITOR AND ASSESS FOR CHANGES
--- NOTE | 2020-09-15 19:23 | NUR ---
Dr Cueva called, RE BP, instructed no more BP meds tonight and BP will be re-evaluated in the am. Will monitor pt through noct. Call light in reach
--- NOTE | 2020-09-15 19:53 | NUR ---
VS TAKEN, NOTE BP DIFFERENT FROM RIGHT AND LEFT. PT ASSISTED TO BED, BLE ELEVATED. WILL RECHECK BP IN ABOUT AN HR. ASYMPTOMATIC. CALL LIGHT IN REACH
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
--- NOTE | 2020-09-15 22:52 | NUR ---
CHARGE NURSE NOTIFIED OF PT SITUATION, SEE PREVIOUS ENTRY. SPIRITUAL CONSULT PLACED FOR PT.
--- NOTE | 2020-09-16 01:41 | NUR ---
AWAKE, SITTING NI CHAIR AT BEDSIDE. VOICED FELT BETTER. ASYMPTOMATIC. NOT LETHARGIC. WATCHING TV. CALL LIGHT IN REACH
--- NOTE | 2020-09-16 03:40 | NUR ---
BIOLOGICAL CHEMIST SUMMARY AM MD WAS AWARE OF LOW BP AND INSTRUCTED NURSE NOT TO GIVE ANY BP MEDS FOR THE REST OF THE DAY, AND THAT SHE WOULD REASSESS PT IN THE AM. HAS EXPERIENCED LOW BP LEVELS PREVIOUS SHIFT THAT SEEMED TO HAVE EXTENDED INTO THIS SHIFT. SBP WAS OBSERVED OF BEING IN THE 80'S TO 90'S. LEGS WERE ELEVATED AND SLEEP MED HELD TO PREVENT DROP IN BP. HE WAS VERY LETHARGIC AT THE TIME WELL. VOICED FEELINGS OF DESPAIR. NURSE HELPED REASSURE HIM HE WAS NOT ALONE AND TO SHARE HIS FEELINGS. CHARGE NURSE NOTIFIED, REQUEST FOR SPIRITUAL CONSULT WAS PLACED FOR THURSDAY. LATER, AFTER PT HAD SLEPT FOR A FEW HOURS, SEEMED MORE ALERT AND HAPPY. VOICED HE FELT "BETTER". PROCEDED TO GET OUT OF BED AND SIT IN BEDSIDE CHAIR TO WATCH TV. CALL LIGHT IN REACH. WILL MONITOR
[2020-09-16 05:17] LABS: Albumin, Blood 3.4 g/dL (3.4-5.0); Anion Gap 5 mmol/L (6-16); Blood Urea Nitrogen 33 mg/dL (8-24); Bun/Creatinine Ratio 23.1 (12.0-20.0); CO2, Blood 27 mmol/L (21-32); Calcium, Blood 8.8 mg/dL (8.5-10.1); Chloride, Blood 104 mmol/L (98-108); Creatinine, Blood 1.43 mg/dL (0.60-1.20); Glomerular Filtration Rate 51 (60-); Glucose, Blood 104 mg/dL (70-99); Phosphorus, Blood 4.6 mg/dL (2.5-4.9); Potassium, Blood 4.7 mmol/L (3.5-5.5); Sodium, Blood 136 mmol/L (136-145)
[2020-09-16] MEDS ORDERED: ATOR80 PO (12:00)
--- NOTE | 2020-09-16 14:37 | NUR ---
DISCHARGE SUMMARY PATIENT DISCHARGED TO HOME. PATIENT ALERT/ORIENTED, INDEPENDENT IN THE ROOM THIS SHIFT. DISCHARGE AND MEDICATION INSTRUCTIONS REVIEWED WITH PATIENT, PATIENT STATES NO QUESTIONS A THIS TIME. IV REMOVED PRIOR TO DISCHARGE. PATIENT DRESSED INDEPENDENTLY. PATIENT'S PROVIDING TRANSPORTATION. PATIENT TO VEHICLE BY WHEELCHAIR.
== END 2020-09-16 13:40 | disposition home or self-care (01) ==
LOC: ER 10:29 → MEDS 10:30
PROVIDERS: Emergency Medicine; Nurse Practitioner Acute Care; ADMIT Internal Medicine
DX: R07.9 Chest pain, unspecified (principal); E11.9 Type 2 diabetes mellitus without complications; I11.0 Hypertensive heart disease with heart failure; I50.32 Chronic diastolic (congestive) heart failure; I25.2 Old myocardial infarction; I25.10 Atherosclerotic heart disease of native coronary artery without angina pectoris; I48.20 Chronic atrial fibrillation, unspecified; G20 Parkinson's disease; E78.00 Pure hypercholesterolemia, unspecified; N40.0 Benign prostatic hyperplasia without lower urinary tract symptoms; K21.9 Gastro-esophageal reflux disease without esophagitis; D50.9 Iron deficiency anemia, unspecified; F43.10 Post-traumatic stress disorder, unspecified; G47.00 Insomnia, unspecified; E66.9 Obesity, unspecified; Z68.32 Body mass index [BMI] 32.0-32.9, adult; Z95.2 Presence of prosthetic heart valve; Z95.1 Presence of aortocoronary bypass graft; Z88.8 Allergy status to other drugs, medicaments and biological substances; Z79.01 Long term (current) use of anticoagulants; Z79.02 Long term (current) use of antithrombotics/antiplatelets; Z95.5 Presence of coronary angioplasty implant and graft; Z79.4 Long term (current) use of insulin; Z95.810 Presence of automatic (implantable) cardiac defibrillator
CPT/HCPCS: 36415; 71045; 78452; 80053; 80061; 80069; 82947; 83036; 84484; 85025; 93005; 93010; 93017; 97110; 97116; 97162; 97530; 99285-25; A9270; A9500; G0378; J2405; J2785

== ENCOUNTER 2020-12-12 17:20 | Emergency (ER) | payer OTHER ==
[~2020-12-12] VITALS: Ht 180.3 cm; Wt 95.2 kg
[~2020-12-12 17:20] MED LIST changes: +ATOR80 PO; +BASAGLAR K100 UNIT/1 SC; +CARBIDOPA-LEVO1 EA15 PO; +GLUCOPHAGE1000 M2 PO; +ISOSORBIDE MONO60 MG PO; +THERA-D2000 UNIT PO; +Vitamin B-121000 MCG PO
[2020-12-12 18:17] LABS: BASOPHILS ABSOLUTE AUTO 0.07 K/mm3 (0.00-0.23); BASOPHILS PERCENT AUTO 1 % (0-2); EOSINOPHILS ABSOLUTE AUTO 0.16 K/mm3 (0.00-0.68); EOSINOPHILS PERCENT AUTO 2 % (0-6); Hematocrit 43.9 % (37.0-53.0); Hemoglobin 14.1 g/dL (13.5-17.5); IMMATURE GRAN ABSOLUTE AUTO 0.26 K/mm3 (0.00-0.10); IMMATURE GRAN PERCENT AUTO 3 % (0-1); LYMPHOCYTES ABSOLUTE AUTO 0.81 K/mm3 (0.84-5.20); LYMPHOCYTES PERCENT AUTO 10 % (21-46); MONOCYTES ABSOLUTE AUTO 1.08 K/mm3 (0.16-1.47); MONOCYTES PERCENT AUTO 14 % (4-13); Mean Corpuscular HGB 27.7 pg (26.0-34.0); Mean Corpuscular HGB Conc 32.1 g/dL (31.5-36.5); Mean Corpuscular Volume 86 fL (80-100); Mean Platelet Volume 10.7 fL (9.1-12.4); NEUTROPHILS PERCENT AUTO 70 % (41-73); Platelet Count 168 K/mm3 (150-400); RDW Coefficient Variation 14.4 % (11.7-14.2); RDW Standard Deviation 45.8 fL (35.1-46.3); Red Blood Cell Count 5.09 M/mm3 (4.30-5.90); White Blood Cell Count 7.98 K/mm3 (4.00-11.30)
[2020-12-12 18:40] LABS: Bun/Creatinine Ratio 21.1 (12.0-20.0); Calcium, Blood 8.5 mg/dL (8.5-10.1); Creatinine, Blood 1.28 mg/dL (0.60-1.20); Potassium, Blood 4.5 mmol/L (3.5-5.5)
--- NOTE | 2020-12-12 19:26 | NUR ---
ED Palliative Care Consult Spoke with Dr Verduzco and discussed case. Pt has history of Parkinson's Disease, CAD, and CHF. Waiting on labs and test results to determine if Pt meets admission criteria. Pt would benefit from advanced care planning. Pt resting on gurny upon arrival. Pt is A&O. Engaged in therapeutic listening as Pt reports living at home with his and step son. [facility] Listened as Pt reports his and step son receive caregiving assistance and he is [facility] himself. Gentle education on disease process including trajectory of disease. Discussed the importance of developing multiple plans as disease takes its coarse. Discussed hospice as an option as disease progresses. Listened as Pt reports not ready for hospice and his goal if to get stronger. Continued therapeutic listening. Pt is hoping for in patient rehab for PT and OT. Educated on life sustaining treatment including risk factors and implications of CPR. Discussed the importance reflecting on goals and values when makin decision. Continued therapeutic listening. Pt expresses appreciation of visit. Will F/U with Pt if admitted and will speak with psych social worker in the AM if Pt is not admitted to assist with SNF and [facility]home caregivers [facility].
[2020-12-12 19:49] LABS: SARS-Cov-2 (COVID-19) PCR, MMC POSITIVE (NEGATIVE)
[2020-12-12 20:33] LABS: Source, Urine Clean Catch
[2020-12-12 20:34] LABS: Blood, Urine 1+ (Neg); Glucose Qualitative, Urine Neg (Neg); Ketones, Urine Neg (Neg); Leukocyte Esterase, Urine 1+ (Neg); Nitrite, Urine Neg (Neg); Protein, Urine 3+ (Neg); Specific Gravity, Urine 1.025 (1.003-1.022); Urobilinogen, Urine 3+ (Normal)
[2020-12-12 20:43] LABS: Appearance, Urine Clear (Clear); Bilirubin, Urine 1+ (Neg); Color, Urine Amber (P-Yellow)
[2020-12-12 20:44] LABS: Bacteria Mod /hpf; Mucus Light (0-Heavy); Red Blood Cells, Urine 0-2 /hpf (0-2); Squamous Epithelial Cells Few /hpf (Few)
[2020-12-12] MEDS ORDERED: CIPR500 PO (22:22)
[2020-12-12] MEDS ORDERED: FURO20 PO (22:26)
== END 2020-12-12 22:35 | disposition home or self-care (01) ==
LOC: ER 17:20
PROVIDERS: Student in an Organized Health Care Education/Training Program
DX: U07.1 COVID-19 (principal); G20 Parkinson's disease; I11.0 Hypertensive heart disease with heart failure; I50.9 Heart failure, unspecified; I25.10 Atherosclerotic heart disease of native coronary artery without angina pectoris; I25.2 Old myocardial infarction; E11.9 Type 2 diabetes mellitus without complications; N40.0 Benign prostatic hyperplasia without lower urinary tract symptoms; G47.30 Sleep apnea, unspecified; Z88.8 Allergy status to other drugs, medicaments and biological substances; Z88.2 Allergy status to sulfonamides; Z79.899 Other long term (current) drug therapy; Z79.01 Long term (current) use of anticoagulants; Z79.02 Long term (current) use of antithrombotics/antiplatelets; Z79.4 Long term (current) use of insulin; Z95.1 Presence of aortocoronary bypass graft
CPT/HCPCS: 71045; 80048; 81001; 83880; 84145; 85025; 87086; 93005; 93010; 99285-25; A9270; J1940; U0004